=== PATIENT | male | born 1980 | race Hispanic/Latino ===

== ENCOUNTER 2018-05-24 17:40 | Emergency (ER) | payer OTHER ==
[~2018-05-24] VITALS: Ht 165.1 cm; Wt 77.3 kg
[2018-05-24] MEDS ORDERED: IBUPROFEN600 MG PO (18:14)
[2018-05-24 18:25] VITALS: BP 136/84
== END 2018-05-24 18:25 | disposition home or self-care (01) | DRG 563 ==
LOC: ED 17:40
DX: S86.912A Strain of unspecified muscle(s) and tendon(s) at lower leg level, left leg, initial encounter (principal); W17.2XXA Fall into hole, initial encounter; Y93.89 Activity, other specified; Y92.89 Other specified places as the place of occurrence of the external cause; Y99.0 Civilian activity done for income or pay